=== PATIENT | male | born 1990 | race African-American/Black ===

== ENCOUNTER 2022-07-27 19:57 | Emergency (ER) | payer OTHER ==
[~2022-07-27] VITALS: Ht 185.4 cm; Wt 99.8 kg
--- NOTE | 2022-07-27 20:10 | NUR ---
[place]TE 40 FROM HOME FOR HEARING VOICES. DENIED SI/HI AND REFUSED PSYCH ADMISSION. PLACED IN BED, CALM- COOPERATIVE, WILL CONTINUE TO MONITOR.
--- NOTE | 2022-07-27 21:10 | NUR ---
COVID SWAB DONE AND SENT TO LAB
--- NOTE | 2022-07-27 21:10 | NUR ---
URINE SPECIMEN SENT TO LAB
[2022-07-27] MEDS ORDERED: diphenhydrAMINE HCL 50 MG/ML VIAL IM ONE (22:00)
[2022-07-27] MEDS ORDERED: diphenhydrAMINE HCL 50 MG/ML VIAL ONE (22:09)
--- NOTE | 2022-07-27 22:41 | NUR ---
Melissa jaime in ED - 07/27/22 at 2246 by ANILA Patient discharged to home in stable condition. Written and verbal after care instructions given. Patient verbalizes understanding of instruction.
--- NOTE | 2022-07-27 22:41 | NUR ---
Patient discharged to home in stable condition. Written and verbal after care instructions given. RELATIVE- FAMILY verbalizes understanding of instruction.
[2022-07-27 22:46] VITALS: BP 135/75
== END 2022-07-27 22:41 | disposition home or self-care (01) ==
LOC: ER 20:00
DX: G24.09 Other drug induced dystonia (principal); T43.4X5A Adverse effect of butyrophenone and thiothixene neuroleptics, initial encounter; F20.9 Schizophrenia, unspecified; Y92.89 Other specified places as the place of occurrence of the external cause
CPT/HCPCS: 99283; 96372; J1200

== ENCOUNTER 2024-01-03 23:19 | Emergency (ER) | payer OTHER ==
[~2024-01-03] VITALS: Ht 162.6 cm; Wt 83.9 kg
[2024-01-04] MEDS ORDERED: ONDANSETRON HCL/PF 4 MG/2 ML VIAL ONE ×2 (00:46→03:23)
[2024-01-04] MEDS: ONDANSETRON HCL/PF - ER 4 MG/2 ML VIAL IV ONE ×2 (00:59→03:00)
[2024-01-04] MEDS: IV NS 0.9% 1,000 ML IV ONE (00:59)
[2024-01-04 01:11] LABS: BASOPHILS % (AUTO) 0.4 % (0.0-2.0); EOSINOPHILS # (AUTO) 0.1 K/uL (0.0-0.7); EOSINOPHILS % (AUTO) 1.6 % (0.0-6.0); HEMATOCRIT 36 % (39-51); HEMOGLOBIN 12.1 g/dL (13.5-17.5); LYMPHOCYTES # (AUTO) 2.1 K/uL (0.8-4.8); LYMPHOCYTES % (AUTO) 24.3 % (20.0-44.0); MEAN CORPUSCULAR HEMOGLOBIN 31 PG (26.0-33.0); MEAN CORPUSCULAR HGB CONC 34 g/dl (31.0-36.0); MEAN CORPUSCULAR VOLUME 91 fL (80-96); MONOCYTES % (AUTO) 11.1 % (2.0-12.0); NEUTROPHILS # (AUTO) 5.5 K/uL (1.8-8.9); NEUTROPHILS % (AUTO) 62.6 % (43.0-81.0); PLATELET COUNT (AUTO) 357 K/uL (150-450); RED BLOOD CELL COUNT(AUTO) 3.95 MIL/uL (4.5-6.0); RED CELL DISTRIBUTION WIDTH 14.1 % (11.5-15.0); WHITE BLOOD COUNT (AUTO) 8.8 K/uL (4.3-11.0)
[2024-01-04 01:26] LABS: CALCIUM, SERUM 9.4 mg/dL (8.5-10.1); CARBON DIOXIDE 30 mmol/L (21-32); CHLORIDE 107 mmol/L (98-107); CREATININE 0.9 mg/dL (0.6-1.3); GLUCOSE 104 mg/dL (74-106); POTASSIUM 4.2 mmol/L (3.5-5.1); SODIUM SERUM 142 mmol/L (136-145); UREA NITROGEN, BLOOD 3 mg/dL (7-18)
[2024-01-04 01:30] LABS: ALANINE AMINOTRANSFERASE 38 U/L (12-78); ALBUMIN 3.3 g/dL (3.4-5.0); ALCOHOL, BLOOD < 3 mg/dL (0-10); ALKALINE PHOSPHATASE 77 U/L (46-116); ASPARTATE AMINOTRANSFERASE 15 U/L (15-37); BILIRUBIN,TOTAL 0.3 mg/dL (0.2-1.0); LIPASE 27 U/L (16-77); TOTAL PROTEIN, SERUM 8.2 g/dL (6.4-8.2)
[2024-01-04] MEDS: PANTOPRAZOLE 40 MG VIAL IV ONE (03:00)
[2024-01-04] MEDS ORDERED: PANTOPRAZOLE 40 MG VIAL ONE (03:23)
[2024-01-04] MEDS ORDERED: PANT40TA2 PO (04:01)
[2024-01-04] MEDS ORDERED: ONDA4TAB5 PO (04:01)
[2024-01-04 04:13] VITALS: BP 134/86; TEMP 98.7; O2SAT 97
== END 2024-01-04 04:14 | disposition home or self-care (01) ==
LOC: ER 23:21
DX: R11.2 Nausea with vomiting, unspecified (principal); F20.9 Schizophrenia, unspecified; Z79.899 Other long term (current) drug therapy
CPT/HCPCS: 99285; 96374; 96361; 96375; 96376; 74176; 85025; 83690; 36415; 80053; 80320; J2405 ×2; J7030; J2470; G0480